=== PATIENT | male | born 1985 | race Caucasian/White ===

== ENCOUNTER 2017-11-03 23:32 | Emergency (ER) | payer MEDICAID ==
[~2017-11-03] VITALS: Ht 172.7 cm; Wt 59.0 kg
[~2017-11-03 23:32] MED LIST: AMOX500C2 PO
[2017-11-03] MEDS ORDERED: LIDOCAINE 1% INJ 20 ML 20 ML VIAL ONE (23:40)
[2017-11-03] MEDS ORDERED: LIDOCAINE 1% INJ 20 ML 20 ML VIAL INJ ONE (23:45)
--- NOTE | 2017-11-03 23:46 | ED Integumentary General ---
General Stated Complaint: SORE ON BOTTOM POSS CYST Source: patient Exam Limitations: no limitations History of Present Illness Date Seen by Provider: Nov 03, 2017 Time Seen by Provider: 23:15 Initial Comments Patient presents to the ER by private conveyance with a chief complaint she's had a sore on his bottom for the past 3 or 4 days distally getting worse. He had his girlfriend poke it with a needle tonight and drained a little bit of purulence out of it but he couldn't get it all out and is causing more pain and getting bigger so he decided to come get it drained. He's had one other in his life on his left leg that had to be drained before. He does not have diabetes or any immunocompromise. He does smoke cigarettes. Allergies and Home Medications Allergies Coded Allergies: No Known Drug Allergies (Unverified , 01/26/15) Home Medications Amoxicillin 500 Mg Capsule, 500 MG PO TID Prescribed by: PARISH TAMAYO on 01/26/15 5989 Patient Home Medication List Home Medication List Reviewed: Yes Constitutional: No chills, No fever, No malaise EENTM: No hearing loss, No ear pain Respiratory: No cough, No short of breath Cardiovascular: No chest pain, No palpitations Gastrointestinal: No abdominal pain, No constipation, No diarrhea, No nausea Genitourinary: No discharge, No dysuria Past Lvlzjrg-Eftarj-Lrzjlf Hx Patient Social History Alcohol Use: Denies Use Recreational Drug Use: Yes Drug of Choice: marijuana Smoking Status: Current Everyday Smoker Type Used: Cigarettes (0.5 packs per day) Recent Foreign Travel: No Contact w/Someone Who Travel: No Past Medical History Reproductive Disorders: No Sexually Transmitted Disease: No Physical Exam Vital Signs Capillary Refill : General Appearance: WD/WN, no apparent distress HEENT: PERRL/EOMI, pharynx normal Neck: non-tender, full range of motion, normal inspection Cardiovascular: normal peripheral pulses, regular rate, rhythm Respiratory: no respiratory distress, no accessory muscle use Gastrointestinal: normal bowel sounds, non tender, soft Skin: other (3 cm diameter area of fluctuance and induration around a central pore consistent with an abscess on the right inferior gluteal fold.) Procedures/Interventions I&D : Site: right inferior gluteal fold Blade Size: 11 I & D Procedure: betadine prep (alcohol and chlorhexidine) Progress Wound was cleaned with chlorhexidine and alcohol. He was then infiltrated with 3 cc of 1% lidocaine without epinephrine. When the skin was ascertained to be numb we use an 11 blade to make a cross maravilla incision, trimming off the corners. We expectorated about 20-30 cc of caseating purulence. We then used a cotton tip applicator to probe the wound and got another one to 2 cc out. We then flushed the wound with about 6 cc of sterile saline. The wound was draining appropriately and a dressing was applied. The patient tolerated the procedure very well. Progress/Results/Core Measures Results/Orders My Orders Orders - SATHISH GUIDRY Lidocaine 1% Inj 20 Ml (Xylocaine 1% Inj (11/03/17 23:45) Departure Impression Primary Impression: Abscess Disposition: 01 HOME, SELF-CARE Condition: Improved Departure-Patient Inst. Decision time for Depature: 23:54 Referrals: NO,LOCAL PHYSICIAN (PCP/Family) Primary Care Physician Patient Instructions: ABSCESS Add. Discharge Instructions: Keep the wound clean with soap and water. Change dressing at least daily or as needed for soiling. group fitness manager the antibiotics and take one tablet of Bactrim DS by mouth with food twice a day for the next 5 days. Scripts Sulfamethoxazole/Trimethoprim (Bactrim Ds Tablet) 1 Each Tablet 1 EACH PO BID for 5 Days, #10 TAB 0 Refills Prov: SATHISH GUIDRY 11/03/17 SATHISH GUIDRY Nov 03, 2017 23:46
[2017-11-03] MEDS ORDERED: SULF1TAB35 PO (23:56)
[2017-11-03 23:59] VITALS: BP 117/84
== END 2017-11-04 | disposition home or self-care (01) ==
LOC: EDUNIT# 23:32 → ER 23:35
DX: L02.31 Cutaneous abscess of buttock (principal); F12.10 Cannabis abuse, uncomplicated
CPT/HCPCS: 10160

== ENCOUNTER 2017-12-07 18:08 | Emergency (ER) | payer MEDICAID ==
[~2017-12-07] VITALS: Ht 172.7 cm; Wt 59.0 kg
[~2017-12-07 18:08] MED LIST changes: +SULF1TAB35 PO
--- NOTE | 2017-12-07 18:29 | ED General ---
General Chief Complaint: General Problems/Pain Stated Complaint: BACK PAIN Source of Information: Patient Exam Limitations: No Limitations History of Present Illness Date Seen by Provider: Dec 07, 2017 Time Seen by Provider: 18:23 Initial Comments Patient is a 32-year-old male who presents to the emergency room with complaints of upper back and neck pain that radiates down to his left shoulder. He states that 3 days ago he woke up with this pain and this just been getting worse. He thinks that he slept on it wrong and it feels like his muscles are tight. He denies injury. Timing/Duration: 3-4 Days Associated Systoms: Denies Symptoms Allergies and Home Medications Allergies Coded Allergies: No Known Drug Allergies (Unverified , 01/26/15) Home Medications Amoxicillin 500 Mg Capsule, 500 MG PO TID Prescribed by: PARISH TAMAYO on 01/26/15 2256 Cyclobenzaprine HCl 10 Mg Tablet, 10 MG PO Q8H Prescribed by: ZHEN AGEE on 12/07/17 1904 Sulfamethoxazole/Trimethoprim 1 Each Tablet, 1 EACH PO BID Prescribed by: SATHISH GUIDRY on 11/03/17 3816 Patient Home Medication List Home Medication List Reviewed: Yes Review of Systems Constitutional: see HPI; No chills, No diaphoresis, No dizziness Musculoskeletal: see HPI, muscle pain, muscle stiffness, neck pain All Other Systems Reviewed Negative Unless Noted: Yes Past Mdwnbzx-Bssjpb-Nrogpt Hx Past Med/Social Hx: Reviewed Nursing Past Med/Soc Hx Patient Social History Drug of Choice: marijuana Type Used: Cigarettes Recent Foreign Travel: No Contact w/Someone Who Travel: No Immunizations Up To Date Tetanus Booster (TDap): Unknown Past Medical History Surgeries: No Respiratory: No Cardiac: No Neurological: No Reproductive Disorders: No Sexually Transmitted Disease: No Gastrointestinal: No Musculoskeletal: No Endocrine: No Cancer: No Psychosocial: No Integumentary: No Blood Disorders: No Family Medical History Reviewed Nursing Family Hx Physical Exam Vital Signs Vital Signs - First Documented 12/07/17 18:12 Temp 98.7 Pulse 91 Resp 18 B/P (MAP) 109/76 (87) Pulse Ox 98 O2 Delivery Room Air Capillary Refill : Height, Weight, BMI Height: 5'8.00" Weight: 130lbs. oz. 58.584642no; BMI Method:Stated General Appearance: No Apparent Distress, WD/WN Neck: Full Range of Motion, Normal Inspection, Supple, Tender Lateral (left lateral tenderness on palpation.) Extremity: Normal Capillary Refill, Normal Inspection, Normal Range of Motion, Non Tender, No Calf Tenderness, No Pedal Edema Neurologic/Psychiatric: Alert, Oriented x3, Normal Mood/Affect Progress/Results/Core Measures Suspected Sepsis SIRS Temperature: Pulse: Respiratory Rate: Blood Pressure / Mean: Results/Orders My Orders Orders - ZHEN AGEE Orphenadrine Injection (Norflex Injectio (12/07/17 18:30) Ketorolac Injection (Toradol Injection) (12/07/17 18:30) Medications Given in ED Current Medications Medications Dose Ordered Sig/Martinez Route Start Time Stop Time Status Last Admin Dose Admin Ketorolac Tromethamine 60 mg ONCE ONCE IM 12/07/17 18:30 12/07/17 18:31 DC 12/07/17 18:28 60 MG Orphenadrine Citrate 60 mg ONCE ONCE IM 12/07/17 18:30 12/07/17 18:31 DC 12/07/17 18:25 60 MG Vital Signs/I&O 12/07/17 18:12 Temp 98.7 Pulse 91 Resp 18 B/P (MAP) 109/76 (87) Pulse Ox 98 O2 Delivery Room Air Capillary Refill : Progress Note : Progress Note I have seen and evaluated the patient. The patient is pain free at this time and is no longer tender on palpation or with range of motion. A prescription for cyclobenzaprine has been sent to the pharmacy. He was instructed to take ibuprofen and Tylenol as needed for pain. Close follow-up with his doctor was recommended. Departure Impression Primary Impression: Muscle strain Disposition: 01 HOME, SELF-CARE Condition: Stable/Unchanged Departure-Patient Inst. Decision time for Depature: 19:02 Referrals: NO,LOCAL PHYSICIAN (PCP) Primary Care Physician Patient Instructions: Muscle Strain (DC) Add. Discharge Instructions: Take medications as directed. He may use ibuprofen and Tylenol as directed by the bottle for pain. Follow up with her doctor within 1 week for recheck. All discharge instructions reviewed with patient and/or family. Voiced understanding. Scripts Cyclobenzaprine HCl (Cyclobenzaprine HCl) 10 Mg Tablet 10 MG PO Q8H, #10 TAB Prov: ZHEN AGEE 12/07/17 ZHEN AGEE Dec 07, 2017 18:29
[2017-12-07] MEDS ORDERED: KETOROLAC 60 MG/2 ML VIAL IM ONE (18:30)
[2017-12-07] MEDS ORDERED: ORPHENADRINE 60 MG/2 ML (NORFLEX) AMP IM ONE (18:30)
[2017-12-07] MEDS ORDERED: CYCL10TA9 PO (19:04)
[2017-12-07 19:15] VITALS: BP 109/76
== END 2017-12-07 19:15 | disposition home or self-care (01) ==
LOC: EDUNIT# 18:08 → ER 18:09
DX: S23.3XXA Sprain of ligaments of thoracic spine, initial encounter (principal); S16.1XXA Strain of muscle, fascia and tendon at neck level, initial encounter; S46.912A Strain of unspecified muscle, fascia and tendon at shoulder and upper arm level, left arm, initial encounter; X58.XXXA Exposure to other specified factors, initial encounter
CPT/HCPCS: 96372; 99284

== ENCOUNTER → 2018-03-21 | Emergency (ER) | payer MEDICAID ==
[~2018-03-21] VITALS: Ht 172.7 cm; Wt 56.7 kg
[~2018-03-21] MED LIST changes: +CYCL10TA9 PO; +D-ME118S33 PO
--- OUTSIDE RECORDS SUMMARY | 2018-03-21 14:45 | XMS REPORT ---
Author Author Jil Gurrola Organization [employer] Address Unknown Phone Unavailable Care Team Providers Care Marker Machine Name Role Phone Jil Gurrola CP Unavailable Allergies No Known Allergies Problems Problem Type Condition ICD-9 Code Onset Dates Condition Status Problem Fatigue 780.79 Active Problem Unspecified backache 724.5 Active Medications No Known Medications Vital Signs Date/Time: May 27, 2013 Weight 124 lbs Blood Pressure Diastolic 83 mm Hg Blood Pressure Systolic 123 mm Hg Temperature 97.9 F Cardiac Monitoring Heart Rate 81 Beats per Minute Results No Known Results Summary Purpose [employer] Submission
--- OUTSIDE RECORDS SUMMARY | 2018-03-21 14:45 | XMS REPORT ---
Author Author Jil Gurrola Organization [employer] Address Unknown Phone Unavailable Care Team Providers Care Deli/Bakery Associate Name Role Phone Jil Gurrola CP Unavailable [...]
--- OUTSIDE RECORDS SUMMARY | 2018-03-21 14:45 | XMS REPORT ---
Author Author Jil Gurrola Organization [employer] Address Unknown Phone Unavailable Care Team Providers Care Loader Machine Name Role Phone Jil Gurrola CP Unavailable Allergies No Known Allergies Problems Problem Type Condition ICD-9 Code Onset Dates Condition Status Problem Fatigue 780.79 Active Assessment Unspecified backache 724.5 Active Problem Unspecified backache 724.5 Active Medications Medication Code System Code Instructions Start Date End Date Status Dosage [facility] [address]-55 7.5 MG Orally Once a day May 27, 2013 Jun 26, 2013 Active 1 tablet Procedures Procedure Coding System Code Date Office Visit, Est Pt., Level 3 CPT-4 04985 Jun 02, 2013 Vital Signs Date/Time: Jun 02, 2013 Weight 123.8 lbs Height 67.75 inches Blood Pressure Diastolic 65 mm Hg Blood Pressure Systolic 106 mm Hg Temperature 98.5 F Cardiac Monitoring Heart Rate 62 Beats per Minute Results No Known Results Summary Purpose [employer] Submission
--- OUTSIDE RECORDS SUMMARY | 2018-03-21 14:45 | XMS REPORT ---
Author Author Jil Gurrola [facility] [employer] Address Unknown Phone Unavailable Care Team Providers Care Pad Machine Offbearer Name Role Phone Jil Gurrola Unavailable Allergies No Known Allergies Problems Problem Type Condition ICD-9 Code Onset Dates Condition Status Problem Fatigue 780.79 Active Assessment Unspecified backache 724.5 Active Problem Unspecified backache 724.5 Active Assessment Fatigue 780.79 Active Medications Medication Code System Code Instructions Start Date End Date Status Dosage [facility] [address]-77 7.5 MG Orally Once a day May 27, 2013 Jun 26, 2013 Active 1 tablet Procedures Procedure Coding System Code Date COMPLETE CBC W/AUTO DIFF WBC CPT-4 90419 May 27, 2013 ASSAY OF LIPOPROTEIN CPT-4 29523 May 27, 2013 COMPREHEN METABOLIC PANEL CPT-4 56365 May 27, 2013 ASSAY OF TRIGLYCERIDES CPT-4 45460 May 27, 2013 ASSAY, BLD/SERUM CHOLESTEROL CPT-4 59454 May 27, 2013 Office Visit, New Pt., Level 3 CPT-4 23595 May 27, 2013 Vital Signs Date/Time: May 27, 2013 Weight 124 lbs Blood Pressure Diastolic 83 mm Hg Blood Pressure Systolic 123 mm Hg Temperature 97.9 F Cardiac Monitoring Heart Rate 81 Beats per Minute Results LIPID PANEL TRIGLYCERIDES(-<150 mg/dL) 113 LDL-CHOLESTEROL(-<130 mg/dL (calc)) 157 CHOL/HDLC RATIO(-< OR=5.0 (calc)) 4.7 NON HDL CHOLESTEROL(- mg/dL (calc)) 180 CHOLESTEROL, TOTAL(-125-200 mg/dL) 229 HDL CHOLESTEROL(-> OR=40 mg/dL) 49 COMPREHENSIVE METABOLIC PANEL ALBUMIN/GLOBULIN RATIO(-1.0-2.5 (calc)) 2.3 GLOBULIN(-1.9-3.7 g/dL (calc)) 2.3 ALKALINE PHOSPHATASE(-40-115 U/L) 81 BILIRUBIN, TOTAL(-0.2-1.2 mg/dL) 1.1 CHLORIDE(-98-110 mmol/L) 101 ALT(-9-46 U/L) 14 POTASSIUM(-3.5-5.3 mmol/L) 4.4 AST(-10-40 U/L) 19 SODIUM(-135-146 mmol/L) 138 BUN/CREATININE RATIO(-6-22 (calc)) NOT APPLICABLE eGFR (-> OR=60 mL/min/1.73m2) 137 CALCIUM(-8.6-10.3 mg/dL) 10.2 CARBON DIOXIDE(-19-30 mmol/L) 27 ALBUMIN(-3.6-5.1 g/dL) 5.4 PROTEIN, TOTAL(-6.1-8.1 g/dL) 7.7 GLUCOSE(-65-99 mg/dL) 82 UREA NITROGEN (BUN)(-7-25 mg/dL) 9 CREATININE(-0.60-1.35 mg/dL) 0.87 eGFR NON-AFR. MALDIVIAN(-> OR=60 mL/min/1.73m2) 118 CBC (INCLUDES DIFF/PLT) MCHC(-32.0-36.0 g/dL) 33.8 MCH(-27.0-33.0 pg) 30.3 PLATELET COUNT(-140-400 Thousand/uL) 291 RDW(-11.0-15.0 %) 13.4 ABSOLUTE LYMPHOCYTES(-850-3900 cells/uL) 2542 ABSOLUTE MONOCYTES(-200-950 cells/uL) 740 ABSOLUTE NEUTROPHILS(-0394-6489 cells/uL) 5100 NEUTROPHILS(- %) 60.0 HEMATOCRIT(-38.5-50.0 %) 47.6 LYMPHOCYTES(- %) 29.9 MCV(-80.0-100.0 fL) 89.5 RED BLOOD CELL COUNT(-4.20-5.80 Million/uL) 5.32 ABSOLUTE EOSINOPHILS(-15-500 cells/uL) 68 ABSOLUTE BASOPHILS(-0-200 cells/uL) 51 HEMOGLOBIN(-13.2-17.1 g/dL) 16.1 BASOPHILS(- %) 0.6 WHITE BLOOD CELL COUNT(-3.8-10.8 Thousand/uL) 8.5 MONOCYTES(- %) 8.7 EOSINOPHILS(- %) 0.8 Summary Purpose [employer] Submission
--- OUTSIDE RECORDS SUMMARY | 2018-03-21 14:45 | XMS REPORT | Continuity of Care Document ---
Author Author [facility] Organization [facility] Address Unknown Phone Unavailable Allergies Active Description Code Type Severity Reaction Onset Reported/Identified Relationship to Patient Clinical Status Yes No Known Drug Allergies [id number] Drug Allergy Unknown N/A 01/26/2015 Yes No Known Allergies No Known Allergies Drug Allergy Unknown N/A 2016 Medications There is no data. Problems Date Dx Coded Attending Type Code Diagnosis Diagnosed By 01/26/2015 PARISH TAMAYO APRN Ot 382.9 OTITIS MEDIA NOS 01/26/2015 PARISH TAMAYO APRN Ot 388.70 OTALGIA NOS 11/04/2017 SATHISH GUIDRY MD Ot F12.10 CANNABIS ABUSE, UNCOMPLICATED 11/04/2017 SATHISH GUIDRY MD Ot L02.31 CUTANEOUS ABSCESS OF BUTTOCK 11/05/2017 SATHISH GUIDRY MD Ot F12.10 CANNABIS ABUSE, UNCOMPLICATED 11/05/2017 SATHISH GUIDRY MD Ot L02.31 CUTANEOUS ABSCESS OF BUTTOCK 12/07/2017 Ot M54.6 PAIN IN THORACIC SPINE 12/07/2017 Ot S16.1XXA STRAIN OF MUSCLE, FASCIA AND TENDON AT N 12/07/2017 Ot S23.3XXA SPRAIN OF LIGAMENTS OF THORACIC SPINE, I 12/07/2017 Ot S46.912A STRAIN UNSP MUSC/FASC/TEND AT SHLDR/UP A 12/07/2017 Ot X58.XXXA EXPOSURE TO OTHER SPECIFIED FACTORS, INI Procedures There is no data. Results There is no data. Encounters ACCT No. Visit Date/Time Discharge Status Pt. Type Provider Facility Loc./Unit Complaint [id number] 11/03/2017 23:35:00 11/04/2017 00:00:00 DIS Emergency SATHISH GUIDRY MD [facility] ER SORE ON BOTTOM POSS CYST [id number] 01/26/2015 22:13:00 01/26/2015 23:04:00 DIS Emergency PARISH TAMAYO APRN [facility] ER L EAR CLOGGED, R EAR PAIN [id number] 03/21/2018 14:42:00 ACT Emergency MALU MUHAMMAD MD [facility] ER FEVER;THROAT PAIN [id number] 12/07/2017 18:09:00 Document Registration [id number] 11/17/2016 19:08:00 11/17/2016 19:47:00 DIS Emergency Anival REYNOLDS, [facility] YVETTE
--- NOTE | 2018-03-21 15:40 | ED General ---
General Chief Complaint: Fever-Adult/Adol Stated Complaint: FEVER;THROAT PAIN Nursing Triage Note: PATIENT STATES THAT HE HAS HAD A FEVER FOR 2 DAYS. LAST TIME HE CHECKED IT WAS 101. HE HAS TAKEN IBUPROFEN WITH NO RESULTS. HE ALSO COMPLAINS OF A SORE THROAT AND A NON-PRODUCTIVE COUGH AND STATES HE LOST HIS VOICE YESTERDAY. HE IS CURRENTLY AFEBRILE. Nursing Sepsis Screen: Possible Sepsis Risk Source of Information: Patient Exam Limitations: No Limitations History of Present Illness Date Seen by Provider: Mar 21, 2018 Time Seen by Provider: 15:38 Initial Comments To ER with reports of fever up to 101 for 2 days. Mild cough, sore throat. Denies runny nose. States he lost his voice yesterday and got back today. Timing/Duration: 1-2 Days Severity: Moderate Associated Systoms: Cough, Fever/Chills Allergies and Home Medications Allergies Coded Allergies: No Known Drug Allergies (Unverified , 01/26/15) Home Medications Amoxicillin 500 Mg Capsule, 500 MG PO TID Prescribed by: PARISH TAMAYO on 01/26/15 2256 Cyclobenzaprine HCl 10 Mg Tablet, 10 MG PO Q8H Prescribed by: ZHEN AGEE on 12/07/17 1904 Sulfamethoxazole/Trimethoprim 1 Each Tablet, 1 EACH PO BID Prescribed by: SATHISH GUIDRY on 11/03/17 0692 Patient Home Medication List Home Medication List Reviewed: Yes Review of Systems Review of Systems Constitutional: see HPI, chills, fever Respiratory: see HPI, cough Cardiovascular: no symptoms reported Genitourinary: no symptoms reported Musculoskeletal: no symptoms reported Skin: no symptoms reported Psychiatric/Neurological: No Symptoms Reported Hematologic/Lymphatic: No Symptoms Reported Past Meornuo-Zwxgyb-Jbhdfk Hx Patient Social History Alcohol Use: Denies Use Recreational Drug Use: No Drug of Choice: marijuana Smoking Status: Current Everyday Smoker Type Used: Cigarettes 2nd Hand Smoke Exposure: Yes Recent Foreign Travel: No Contact w/Someone Who Travel: No Recent Infectious Disease Expo: No Recent Hopitalizations: No Immunizations Up To Date Tetanus Booster (TDap): Unknown Past Medical History Surgeries: No Respiratory: No Cardiac: No Neurological: No Reproductive Disorders: No Sexually Transmitted Disease: No Genitourinary: No Gastrointestinal: No Musculoskeletal: Yes Scoliosis Endocrine: No HEENT: No Cancer: No Psychosocial: No Integumentary: No Blood Disorders: No Physical Exam Vital Signs Vital Signs - First Documented 03/21/18 15:10 Temp 98.6 Pulse 91 Resp 22 B/P (MAP) 108/71 (83) Pulse Ox 98 Capillary Refill : Less Than 3 Seconds Height, Weight, BMI Height: 5'8.00" Weight: 125lbs. 0oz. 56.140000xv; BMI Method:Stated General Appearance: No Apparent Distress, WD/WN, Thin Eyes: Bilateral Eye Normal Inspection, Bilateral Eye PERRL, Bilateral Eye EOMI HEENT: PERRL/EOMI, TMs Normal, Normal ENT Inspection, Pharynx Normal Neck: Full Range of Motion, Normal Inspection Respiratory: Normal Breath Sounds, No Accessory Muscle Use, No Respiratory Distress Neurologic/Psychiatric: Alert, Oriented x3, No Motor/Sensory Deficits Skin: Normal Color, Warm/Dry Progress/Results/Core Measures Suspected Sepsis Recent Fever Within 48 Hours: Yes Infection Criteria Present: Suspected New Infection New/Unexplained Altered Menta: No Sepsis Screen: Possible Sepsis Risk SIRS Temperature:98.6 Pulse: 91 Respiratory Rate: 22 Blood Pressure 108 /71 Mean: 83 Results/Orders My Orders Orders - PARISH TAMAYO APRN Influenza A And B Antigens (03/21/18 15:30) Vital Signs/I&O 03/21/18 15:10 Temp 98.6 Pulse 91 Resp 22 B/P (MAP) 108/71 (83) Pulse Ox 98 Capillary Refill : Less Than 3 Seconds Blood Pressure Mean: 83 Departure Impression Primary Impression: Viral syndrome Disposition: 01 HOME, SELF-CARE Condition: Stable Departure-Patient Inst. Decision time for Depature: 15:39 Referrals: NO,LOCAL PHYSICIAN (PCP/Family) Primary Care Physician Patient Instructions: VIRAL SYNDROME Add. Discharge Instructions: 1. Return to ER for any concerns 2. Follow-up with doctor next week 3. All discharge instructions reviewed with patient and/or family. Voiced understanding. Scripts D-Methorphan Hb/P-Epd HCl/Bpm (Bromfed Dm Cough Syrup) 118 Ml Syrup 5 ML PO Q4H PRN for CONGESTION, #120 ML Prov: PARISH TAMAYO APRN 03/21/18 PARISH TAMAYO APRN Mar 21, 2018 15:40
[2018-03-21 16:12] VITALS: BP 108/71
== END | disposition home or self-care (01) ==
LOC: EDUNIT# 14:40 → ER 14:42
DX: B34.9 Viral infection, unspecified (principal); F17.210 Nicotine dependence, cigarettes, uncomplicated
CPT/HCPCS: 87804

== ENCOUNTER → 2018-08-18 | Outpatient (CLI) | payer OTHER ==
--- NOTE | 2018-08-18 12:36 | Diagnostic Imaging Report ---
INDICATION: Neck pain. EXAMINATION: Cervical spine. FINDINGS: AP and lateral views of the cervical spine show normal vertebral body heights and alignment. Disc spaces are normal. Posterior elements are intact and in good alignment. The odontoid is intact. Atlantoaxial relationship appears normal. IMPRESSION: Negative cervical spine. Dictated by: Dictated on workstation # [id number]
--- NOTE | 2018-08-18 19:22 | Diagnostic Imaging Report ---
INDICATION: Scoliosis. TIME OF EXAM: 09:33 a.m. FINDINGS: There is normal lumbar lordotic curvature present. No significant scoliotic curvature is seen. Vertebral body heights and disc spaces are well maintained. No fracture or subluxation is seen. IMPRESSION: No acute bony abnormality is detected. Dictated by: Dictated on workstation # [id number]
== END ==
LOC: RAD 09:14
PROVIDERS: ATTEND Surgery
DX: Z02.71 Encounter for disability determination (principal); M41.86 Other forms of scoliosis, lumbar region; M54.2 Cervicalgia
CPT/HCPCS: 72040; 72100

== ENCOUNTER 2019-05-21 04:59 | Emergency (ER) | payer MEDICAID, OTHER ==
[~2019-05-21] VITALS: Ht 168 cm; Wt 52.1 kg
[2019-05-21] MEDS ORDERED: ASPIRIN 81 MG CHEW (CHILDREN'S ASA) PO ONE (05:15)
[2019-05-21] MEDS ORDERED: NITROGLYCERIN 0.4 MG SL TABS BTL 25'S SL PRN (05:15)
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
--- NOTE | 2019-05-21 05:21 | NUR ---
2ND NTG DOSE HELD D/T BP 109/79
[2019-05-21 05:26] LABS: BASOPHILS % (AUTO) 0 % (0-10); EOSINOPHILS # (AUTO) 0.1 10^3/uL (0.0-0.3); EOSINOPHILS % (AUTO) 1 % (0-10); HEMATOCRIT 41 % (40-54); HEMOGLOBIN 13.9 G/DL (13.3-17.7); LYMPHOCYTES # (AUTO) 3.4 X 10^3 (1.0-4.0); LYMPHOCYTES % (AUTO) 37 % (12-44); MEAN CORPUSCULAR HEMOGLOBIN 29 PG (25-34); MEAN CORPUSCULAR HGB CONC 34 G/DL (32-36); MEAN CORPUSCULAR VOLUME 86 FL (80-99); MONOCYTES # (AUTO) 0.9 X 10^3 (0.0-1.0); MONOCYTES % (AUTO) 9 % (0-12); NEUTROPHILS # (AUTO) 4.8 X 10^3 (1.8-7.8); NEUTROPHILS % (AUTO) 52 % (42-75); PLATELET COUNT 280 10^3/uL (130-400); RED CELL DISTRIBUTION WIDTH 13.9 % (10.0-14.5); WHITE BLOOD COUNT 9.2 10^3/uL (4.3-11.0)
[2019-05-21 05:40] LABS: PROTHROMBIN TIME PATIENT 13.6 SEC (12.2-14.7)
[2019-05-21 05:59] LABS: ALANINE AMINOTRANSFERASE 14 U/L (0-55); ALBUMIN 4.5 GM/DL (3.2-4.5); ALKALINE PHOSPHATASE 64 U/L (40-136); BILIRUBIN,TOTAL 0.3 MG/DL (0.1-1.0); BUN/CREATININE RATIO 17; CARBON DIOXIDE 21 MMOL/L (21-32); CHLORIDE 108 MMOL/L (98-107); CREATININE SERUM 0.86 MG/DL (0.60-1.30); GFR ESTIMATED > 60; GLUCOSE 106 MG/DL (70-105); POTASSIUM 3.5 MMOL/L (3.6-5.0); SODIUM 140 MMOL/L (135-145); TOTAL PROTEIN 7.1 GM/DL (6.4-8.2)
[2019-05-21 06:22] VITALS: BP 105/78
--- NOTE | 2019-05-21 06:39 | Diagnostic Imaging Report ---
INDICATION: Chest pain. COMPARISON: None. FINDINGS: Single view of the chest demonstrates clear lungs bilaterally. The heart is normal. There is no pneumothorax. Osseous structures normal. IMPRESSION: Negative chest. Dictated by: Dictated on workstation # [id number]
== END 2019-05-21 06:25 | disposition home or self-care (01) ==
LOC: EDUNIT# 04:59 → ER 05:01
DX: R07.89 Other chest pain (principal); F17.210 Nicotine dependence, cigarettes, uncomplicated
CPT/HCPCS: 36415; 71045; 80053; 83735; 83874; 84484; 85025; 85610; 85730; 93005